=== PATIENT | male | born 1940 | race Asian ===

== ENCOUNTER → 2021-02-19 | Day surgery (SDC) | payer MEDICARE, OTHER ==
[~2021-02-19] VITALS: Ht 162.6 cm; Wt 47.0 kg
[~2021-02-19] MED LIST: ASPI-556 PO; FentaNYL CITRATE PF 100 MCG/2 ML VIAL ONE; ISOS30TA11 PO; METO-408 PO; MIDAZOLAM HCL 2 MG/2 ML VIAL ONE; MIDAZOLAM HCL 5 MG/ML VIAL ONE; MONT-35 PO; MethylPREDNISolone SOD SUCC 125 MG/2 ML VIAL IVP ONE; MethylPREDNISolone SOD SUCC 125 MG/2 ML VIAL ONE; OMEP10SU2 PO; OXYGEN THERAPY IH SCH; SIMV-43 PO; SODIUM CHLORIDE 0.9% 1,000 ML IV ONE; SODIUM CHLORIDE 0.9% 1,000 ML ONE
[2021-02-19 06:41] LABS: COVID AG,FIA SOURCE NASOPHARYNGEAL
== END | disposition home or self-care (01) ==
LOC: SURGERY 06:09
PROVIDERS: ATTEND Internal Medicine Critical Care Medicine
DX: J38.4 Edema of larynx (principal); B37.0 Candidal stomatitis; I10 Essential (primary) hypertension; I25.2 Old myocardial infarction; E78.5 Hyperlipidemia, unspecified; E11.9 Type 2 diabetes mellitus without complications; Z98.890 Other specified postprocedural states; Z95.5 Presence of coronary angioplasty implant and graft; Z88.8 Allergy status to other drugs, medicaments and biological substances; Z79.899 Other long term (current) drug therapy
CPT/HCPCS: 31623; 31624; 71045; 87015; 87070; 87101; 87205; 87206; 87220; 87426; 88108; 88184; 88185; 88312; C9803; J2250; J2930; J3010; J7030

== ENCOUNTER 2022-07-19 06:23 | Day surgery (SDC) | payer MEDICARE, OTHER ==
[~2022-07-19] VITALS: Ht 160 cm; Wt 46.3 kg
[~2022-07-19 06:23] MED LIST changes: +AMIO200T68 PO; +APIX2.5T PO; -ASPI-556 PO; +ATOR40TA28 PO; +FLUT1BLS3 PUFF; -FentaNYL CITRATE PF 100 MCG/2 ML VIAL ONE; -ISOS30TA11 PO; -MIDAZOLAM HCL 2 MG/2 ML VIAL ONE; -MIDAZOLAM HCL 5 MG/ML VIAL ONE; -MethylPREDNISolone SOD SUCC 125 MG/2 ML VIAL IVP ONE; -MethylPREDNISolone SOD SUCC 125 MG/2 ML VIAL ONE; -OMEP10SU2 PO; -OXYGEN THERAPY IH SCH; +P-EP-31; +PANT-31 PO; -SIMV-43 PO; -SODIUM CHLORIDE 0.9% 1,000 ML IV ONE; -SODIUM CHLORIDE 0.9% 1,000 ML ONE
[2022-07-19 06:52] LABS: COVID AG,FIA SOURCE NASOPHARYNGEAL
[2022-07-19] MEDS ORDERED: SODIUM CHLORIDE 0.9% 1,000 ML ONE (07:04)
[2022-07-19] MEDS ORDERED: SODIUM CHLORIDE 0.9% 1,000 ML IV ONE (08:00)
[2022-07-19] MEDS ORDERED: MIDAZOLAM HCL 5 MG/ML VIAL ONE (08:15)
[2022-07-19] MEDS ORDERED: FentaNYL CITRATE PF 100 MCG/2 ML VIAL ONE (08:15)
== END 2022-07-19 09:00 | disposition home or self-care (01) ==
LOC: SURGERY 06:23
PROVIDERS: ATTEND Internal Medicine Critical Care Medicine
DX: R05.3 Chronic cough (principal); Z53.8 Procedure and treatment not carried out for other reasons; Z90.49 Acquired absence of other specified parts of digestive tract; J44.9 Chronic obstructive pulmonary disease, unspecified; I10 Essential (primary) hypertension; Z20.822 Contact with and (suspected) exposure to COVID-19; Z98.890 Other specified postprocedural states; Z79.899 Other long term (current) drug therapy; Z86.19 Personal history of other infectious and parasitic diseases
CPT/HCPCS: 93005; 87426; J7030; C9803; J2250; J3010

== ENCOUNTER 2022-08-14 06:19 | Day surgery (SDC) | payer MEDICARE, OTHER ==
[~2022-08-14] VITALS: Ht 160 cm; Wt 50.0 kg
[2022-08-14 06:51] LABS: COVID AG,FIA SOURCE NASAL SWAB
[2022-08-14] MEDS ORDERED: SODIUM CHLORIDE 0.9% 1,000 ML IV ONE (07:00)
[2022-08-14] MEDS ORDERED: MIDAZOLAM HCL 5 MG/ML VIAL ONE (08:21)
[2022-08-14] MEDS ORDERED: FentaNYL CITRATE PF 100 MCG/2 ML VIAL ONE (08:21)
[2022-08-14] MEDS ORDERED: SODIUM CHLORIDE 0.9% 1,000 ML ONE (08:23)
== END 2022-08-14 09:20 | disposition home or self-care (01) ==
LOC: SURGERY 06:19
PROVIDERS: ATTEND Internal Medicine Critical Care Medicine
DX: R05.3 Chronic cough (principal); Z53.8 Procedure and treatment not carried out for other reasons; I10 Essential (primary) hypertension; E78.00 Pure hypercholesterolemia, unspecified; Z79.01 Long term (current) use of anticoagulants; Z86.19 Personal history of other infectious and parasitic diseases; Z20.822 Contact with and (suspected) exposure to COVID-19; Z98.890 Other specified postprocedural states; Z87.891 Personal history of nicotine dependence
CPT/HCPCS: 87426; C9803; J7030; J2250; J3010

== ENCOUNTER 2022-08-30 07:26 | Day surgery (SDC) | payer MEDICARE, OTHER ==
[~2022-08-30] VITALS: Ht 160 cm; Wt 50.0 kg
[~2022-08-30 07:26] MED LIST changes: +SODIUM CHLORIDE 0.9% 0 ML ONE; +SODIUM CHLORIDE 0.9% 1,000 ML IV ONE; +SODIUM CHLORIDE 0.9% 1,000 ML ONE
[2022-08-30] MEDS ORDERED: MIDAZOLAM HCL 5 MG/ML VIAL ONE (07:40)
[2022-08-30] MEDS ORDERED: FentaNYL CITRATE PF 100 MCG/2 ML VIAL ONE (07:40)
[2022-08-30 08:04] LABS: COVID AG,FIA SOURCE NASAL SWAB
[2022-08-30] MEDS ORDERED: MethylPREDNISolone SOD SUCC 125 MG/2 ML VIAL IVP ONE (09:45)
[2022-08-30] MEDS ORDERED: MethylPREDNISolone SOD SUCC 125 MG/2 ML VIAL ONE (10:07)
[2022-08-30] MEDS ORDERED: OXYGEN THERAPY IH SCH (20:00)
== END 2022-08-30 12:15 | disposition home or self-care (01) ==
LOC: SURGERY 07:26
PROVIDERS: ATTEND Internal Medicine Critical Care Medicine
DX: R05.3 Chronic cough (principal); R06.2 Wheezing; R49.0 Dysphonia; R91.1 Solitary pulmonary nodule; R04.2 Hemoptysis; B37.0 Candidal stomatitis; Z20.822 Contact with and (suspected) exposure to COVID-19; Z79.01 Long term (current) use of anticoagulants; Z79.899 Other long term (current) drug therapy; Z95.0 Presence of cardiac pacemaker; Z98.890 Other specified postprocedural states
CPT/HCPCS: 31623; 87101; 87220; 87070; 88108; 88305; 31624; 71045; 87015; 87426; 87206; J3010; J2930; J2250; J7030; C9803